=== PATIENT | female | born 1980 | race African-American/Black ===

== ENCOUNTER → 2016-08-09 | Emergency (ER) | payer SELFPAY ==
[~2016-08-09] VITALS: Ht 167.6 cm; Wt 74.8 kg
[~2016-08-09] MED LIST: NORCO 5-325 TA1 EAC1 ORAL
[2016-08-09 11:48] VITALS: BP 121/67
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
[2016-08-09 13:41] VITALS: BP 121/67
== END | disposition home or self-care (01) ==
LOC: EMR 12:20
DX: T24.291A Burn of second degree of multiple sites of right lower limb, except ankle and foot, initial encounter (principal); X11.8XXA Contact with other hot tap-water, initial encounter; Y92.9 Unspecified place or not applicable; Y99.8 Other external cause status